=== PATIENT | male | born 1955 | race Caucasian/White ===

== ENCOUNTER → 2019-02-16 | Outpatient (CLI) | payer MEDICARE, OTHER ==
--- NOTE | 2019-03-02 20:17 | SLEEP ---
[address] [address] SLEEP STUDY REPORT Name: TYREE LONGORIA Room: [facility]#: [id number] Admission: 02/16/19 Attend Phys: Buster Thomas Discharge: Date of : 51 Report #: [id number] THIS REPORT FOR: //name// CC: Geetha Helton DO This study has been reviewed in its entirety by a board certified sleep specialist DATE OF SERVICE: 02/17/2019 HOME SLEEP STUDY ATTENDING PHYSICIAN: Geetha Helton D.O. The patient is 63 years old, who weighs 214 pounds with a BMI of 28.2. The patient's Kennard score was 11. The patient underwent home sleep study performed at [facility]. Total recording time was 538 minutes. During the night of the study, the patient had 27 obstructive apneas, 1 central apnea, no mixed apneas, and 16 hypopneas. The patient's apnea-hypopnea index was 5 per hour. No supine sleep was recorded. Nocturnal oximetry study revealed an average oxygen saturation of 94% with the lowest of 89%. Only 0.3 minutes were spent in oxygen saturation less than 90%. Mean heart rate was 48 beats per minute with a maximum of 89 beats per minute. IMPRESSION: 1. Mild sleep apnea-hypopnea syndrome at an AHI of 5 per hour. 2. No clinically significant nocturnal hypoxia. RECOMMENDATIONS: 1. The patient has only mild sleep apnea. I would recommend weight loss as the initial form of treatment. 2. If the patient remains clinically symptomatic or has other comorbid conditions, then the patient's sleep apnea can be treated with an oral appliance as recommended by the dentist versus a trial of home auto CPAP titration. 3. Avoid [employer] depressants. 4. Cautioned regarding driving until symptoms of sleep apnea resolve with the above recommendations. <ELECTRONICALLY SIGNED> By: Shamir Silver MD 03/02/192016 [id number] Silver MD /claire
== END ==
LOC: M.SLEEPLAB 02-12 10:00
DX: G47.30 Sleep apnea, unspecified (principal); G47.9 Sleep disorder, unspecified; R41.3 Other amnesia

== ENCOUNTER → 2021-08-07 | Outpatient (CLI) | payer MEDICARE, OTHER | LOC: M.ULTRA 12:42 | PROVIDERS: ATTEND Family Medicine | DX: R29.898 Other symptoms and signs involving the musculoskeletal system (principal); G25.81 Restless legs syndrome; M79.605 Pain in left leg; M79.604 Pain in right leg; I73.9 Peripheral vascular disease, unspecified ==